=== PATIENT | female | born 1970 | race Caucasian/White ===

== ENCOUNTER 2020-02-16 14:45 | Inpatient (IN) | payer BC, OTHER ==
--- OUTSIDE RECORDS SUMMARY | 2020-02-16 14:52 | XMS REPORT | Continuity of Care Document ---
:1970 Author Organization [facility] t Address [address] [place] [address] Care Team Providers Name Role Phone Henry Primary Care Physician Unavailable DR MELONY Attending Clinician Unavailable Dickson BOUCHER S Attending Clinician Mary VITAL Attending Clinician Unavailable DR MELONY Admitting Clinician Unavailable Problems Condition Condition Condition Status Onset Resolution Last Treating Co mments Source Name Details Category Date Date Treatment Clinician Date LUMBAR Diagnosis Active 2019-03-30 Mem [facility] STRAIN 12-27 14:16:00 l LUMBAR 10:30: [place] STRAIN 00 Active 12/27/2018 [facility] Allergies, Adverse Reactions, Alerts This patient has no known allergies or adverse reactions. Social History Social Habit Start Date Stop Date Quantity Comments Source Sex Assigned At [facility] Tobacco use and 2016-09-28 2016-09-28 Never used [facility] exposure 00:00:00 00:00:00 Alcohol intake 2016-09-28 2016-09-28 Current drinker [place] [facility] 00:00:00 00:00:00 of alcohol (finding) Smoking Status Start Date Stop Date Source Never smoker [facility] Medications Ordered Filled Start Stop Current Ordering Indication Dosage Frequency Signature Comments Components Source Medication Medication Date Date Medication? Clinician (SIG) Name Name traZODone Yes 50mg QD Take 50 mg Ho francisco (DESYREL) 6-23 by mouth Method i 50 MG 12:37: nightly. st tablet 35 busPIRone 2017-0 Yes TK 1/2 TO Estrellita mercer (BUSPAR) 15 6-15 1 T PO BID Me thodi MG tablet 00:00: PRA st 00 escitalopra 2017- Yes TK 1 T PO H ouruslan m (LEXAPRO) 6-15 QAM Methodi 10 MG 00:00: st tablet 00 lisinopril 2016- Yes TK 1 T PO Ho francisco (PRINIVIL,Z 6-15 D Methodi ESTRIL) 10 00:00: st mg tablet 00 Procedures This patient has no known procedures. Plan of Care Planned Activity Planned Date Details Comments Source Future Scheduled 2019-11-07 INFLUENZA VACCINE [place] [facility] 00:00:00 [code = INFLUENZA VACCINE] Future Scheduled 2019-09-16 BREAST CANCER [facility] 00:00:00 SCREENING [code = BREAST CANCER SCREENING] Future Scheduled 2019-09-16 COLONOSCOPY SCREENING Ho [facility] Test 00:00:00 [code = COLONOSCOPY SCREENING] Future Scheduled 2019-09-16 SHINGLES VACCINES [place] [facility] 00:00:00 (#1) [code = SHINGLES VACCINES (#1)] Future Scheduled 1990 Screening for [facility] 00:00:00 malignant neoplasm of cervix (procedure) [code = 713966957] Encounters Start End Encounter Admission Attending Care Care Encounter Source Date/Time Date/Time Type Type Clinicians Facility Department ID 2019-12-23 2019-12-23 Outpatient C MATEO TY [facility] [id number] [facility] 07:54:00 11:25:00 Medica l [place] 2019-11-25 2019-11-25 [facility] [id number] 16:09:21 23:59:00 Encounter [facility] [id number] Surgical [id number] Specialti [id number] es [address] [place] 2019-11-25 2019-11-25 Office [facility] [id number] 16:07:18 16:22:18 Visit [facility] [id number] Surgical [id number] Specialti [id number] es [address] [place] 2019-01-29 2019-02-27 Outpatient AMANUEL, [id number] 11:36:00 23:59:00 HERO Hernandez [id number] 5.38 Results This patient has no known results.
--- OUTSIDE RECORDS SUMMARY | 2020-02-16 14:52 | XMS REPORT | Clinical Summary ---
:1970 Author Organization [facility] Address [address] [place] [address] Care Team Providers Name Role Phone Isabel Primary Care Provider Unavailable Allergies No Known Active Allergies Medications Medication Sig Dispensed Refills Start Date End Date Status busPIRone (BUSPAR) 15 MG TK 1/2 TO 1 T PO 2 09/21/19 17 Active tablet BID PRA escitalopram (LEXAPRO) TK 1 T PO QAM 4 09/20/2016 Active 10 MG tablet lisinopril TK 1 T PO D 5 09/20/2016 Active (PRINIVIL,ZESTRIL) 10 mg tablet traZODone (DESYREL) 50 Take 50 mg by 0 Active MG tablet mouth nightly. Active Problems No known active problems Medical History Medical History Date Comments Hypertension Kidney stone Family History Relation Name Status Comments Father Alive Mother Social History Tobacco Use Types Packs/Day Years Used Date Never Smoker Smokeless Tobacco: Never Used Alcohol Use Drinks/Week oz/Week Comments Yes Sex Assigned at Date Recorded Not on file Last Filed Vital Signs Not on file Plan of Treatment Health Maintenance Due Date Last Done Comments CERVICAL CANCER SCREENING 1990 BREAST CANCER SCREENING 09/16/2019 COLONOSCOPY SCREENING 09/16/2019 SHINGLES VACCINES (#1) 09/16/2019 INFLUENZA VACCINE 11/07/2019 Results Not on fileafter 02/15/2019 Advance Directives For more information, please contact: [phone] Type Date Recorded 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
--- OUTSIDE RECORDS SUMMARY | 2020-02-16 14:52 | XMS REPORT | Continuity of Care Document ---
:1970 Author Organization [facility] Care Team Providers Name Role Phone [facility] Unavailable Un available Problems Problem Status Onset Date Classification Date Comments Sour ce Reported LUMBAR Active 12/27/2018 [facility] STRAIN [facility] Medications No Data Provided for This Section Allergies, Adverse Reactions, Alerts No Known Medication Allergies Immunizations No Data Provided for This Section Results No Data Provided for This Section Pathology Reports No Data Provided for This Section Diagnostic Reports No Data Provided for This Section Consultation Notes No Data Provided for This Section Discharge Summaries No Data Provided for This Section History and Physicals No Data Provided for This Section Vital Signs No Data Provided for This Section Encounters Location Location Encounter Encounter Reason Attending ADM [place] Source Details Type Number For Provider Date Date Visit [facility] Alexandro OP Therapy [id number] HERO 01/29 02/28 [facility] Patients [facility] Procedures No Data Provided for This Section Assessment and Plan No Data Provided for This Section Plan of Care No Data Provided for This Section Social History Social History Date Source Social History TypeResponse 02/28/2019 [facility] Family History No Data Provided for This Section Advance Directives No Data Provided for This Section Functional Status No Data Provided for This Section
--- OUTSIDE RECORDS SUMMARY | 2020-02-16 14:53 | XMS REPORT | Summary of Care ---
:1970 Author Organization [facility] Address [address] [place] [address] Care Team Providers Name Role Phone Jackie Hall MD Primary Care Provider Reason for Referral Radiology Services (Routine) Status Reason Specialty Diagnoses / Referred By Referred To Procedures Contact Contact New Request Diagnostic Diagnoses Status post open reduction with internal fixation (ORIF) of fracture of ankle Logan Forman, Radiology Procedures XR ANKLE <3 VW LEFT PAC [address] [place] [address] Reason for Visit Reason Comments Follow-up ORIF LT Ankle DOS: 0 - 6 weeks 2 days Encounter Details Date Type Department Care Team Description 11/25/2019 Office Visit [facility] Orthopaedic Logan Forman, S tatus post open Surgery- [place] PAC reduction with [address], [address] internal fixation [address] ([place]) [place] [address] [place], [place] ankle (Primary Dx) [phone] Allergies Active Allergy Reactions Severity Noted Date Comments Codeine Itching 07/29/2013 documented as of this encounter (statuses as of 11/25/2019) Medications Medication Sig Dispensed Refills Start Date End Date Status traMADol 50 mg Take 1 tablet by 12 tablet 0 10/04/2019 Active tabletIndications: mouth every 8 Closed fracture of (eight) hours as proximal lateral needed for Pain malleolus of left (scale 7-10). fibula, initial encounter ibuprofen 600 mg Take 1 tablet by 30 tablet 0 10/04/2019 Active tabletIndications: mouth every 6 Closed fracture of (six) hours as proximal lateral needed for Pain malleolus of left (scale 4-6). fibula, initial encounter documented as of this encounter (statuses as of 11/25/2019) Active Problems Problem Noted Date Closed fracture of distal end of fibula, unspecified f racture morphology, 10/08/2019 initial encounter Overview: Added automatically from request for berna cristobal [id number] Hypercholesterolemia 02/19/2018 Macrocytosis 02/19/2018 Microscopic hematuria 09/14/2016 Anxiety 06/03/2016 Thrombocytosis 07/30/2013 Overview: PLT- 483 Tobacco use disorder 07/29/2013 Endometriosis 07/29/2013 Dysmenorrhea 07/29/2013 Depression 07/29/2013 documented as of this encounter (statuses as of 11/25/2019) Resolved Problems Problem Noted Date Resolved Date Encounter for routine gynecological examination 07/29/2013 05/29/2016 Overview: ICD10 Diagnosis 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 documented as of this encounter (statuses as of 11/25/2019) Immunizations Name Administration Dates Next Due Pneumococcal Polysaccharide, PPSV23 (PNEUMOVAX) 02/04/2018 Td 04/08/2009 documented as of this encounter Social History Tobacco Use Types Packs/Day Years Used Date Current Every Day Smoker Cigarettes 1 25 Smokeless Tobacco: Current User Alcohol Use Drinks/Week oz/Week Comments Yes 1-2 per month Sex Assigned at Date Recorded Not on file COVID-19 Exposure Response Date Recorded In the last month, have you been in contact with No / Unsure 10/26/2019 3:21 PM CDT someone who was confirmed or suspected to have Coronavirus / COVID-19? documented as of this encounter Last Filed Vital Signs Vital Sign Reading Time Taken Comments Blood Pressure 128/89 11/25/2019 4:14 PM CDT Pulse 87 11/25/2019 4:14 PM CDT Temperature - - Respiratory Rate - - Oxygen Saturation - - Inhaled Oxygen Concentration - - Weight 51.7 kg (114 lb) 11/25/2019 4:14 PM CDT Height 177.8 cm (5' 10") 11/25/2019 4:14 PM CDT Body Mass Index 16.36 11/25/2019 4:14 PM CDT documented in this encounter Progress Notes Logan Forman, PAC - 11/25/2019 4:15 PM CDT Cc: Chief Complaint Patient presents with Follow-up ORIF LT Ankle DOS: 10/12/2019 - 6 weeks 2 days Tee Smart is a 49 year old female. I'll up status post ORIF left ankle 10/11/2025 weeks postop Allergies Tee is allergic to codeine. Medications Outpatient Medications Prior to Visit Medication Sig Dispense Refill ibuprofen 600 mg tablet Take 1 tablet by mouth every 6 (six) hours as needed for Pain (scale 4-6). 30 tablet 0 traMADol 50 mg tablet Take 1 tablet by mouth every 8 (eight) hours as needed for Pain (scale 7-10). 12 tablet 0 No facility-administered medications prior to visit. Histories Past Medical History: Diagnosis Date Anemia During Anxiety 06/03/2016 Depression No current medications Depression 07/29/2013 Dysmenorrhea 07/29/2013 Endometriosis Macrocytosis 02/19/2018 Microscopic hematuria 09/14/2016 Personal history of kidney stones Tobacco use disorder 07/29/2013 Past Surgical History: Procedure Laterality Date ANKLE ORIF Left 10/12/2019 Surgeon: Ferny Wilcox MD; Location: [facility] Social History Socioeconomic History Marital status: Spouse name: Not on file Number of children: Not on file Years of education: Not on file Highest education level: Not on file Occupational History Not on file Social Needs Financial resource strain: Not on file Food insecurity Worry: Not on file Inability: Not on file Transportation needs Medical: Not on file Non-medical: Not on file Tobacco Use Smoking status: Current Every Day Smoker Packs/day: 1.00 Years: 25.00 Pack years: 25.00 Types: Cigarettes Smokeless tobacco: Current User Substance and Sexual Activity Alcohol use: Yes Comment: 1-2 per month Drug use: No Sexual activity: Yes Partners: Male control/protection: Abstinence Comment: Last intercourse 2 years ago Lifestyle Physical activity Days per week: Not on file Minutes per session: Not on file Stress: Not on file Relationships Social connections Talks on phone: Not on file Gets together: Not on file Attends sikh service: Not on file Active member of club or organization: Not on file Attends meetings of clubs or organizations: Not on file Relationship status: Not on file Intimate partner violence Fear of current or ex partner: Not on file Emotionally abused: Not on file Physically abused: Not on file Forced sexual activity: Not on file Other Topics Concern Not on file Social History Narrative Denies domestic violence or abuse Family History Problem Relation Age of Onset Hypertension Mother Depression Mother Psychiatry Mother Bipolar Disorder Thyroid Mother Hypertension Maternal Aunt Other - see comments Maternal Aunt Thyroid d/o Thyroid Maternal Aunt Hypertension Maternal Grandmother High cholesterol Maternal Grandmother Heart Maternal Grandmother Arthritis Daughter Juvenile rhematoid Psychiatry Sister bipolar disorder Asthma NoFHx defects NoFHx Genetic NoFHx Breast Cancer NoFHx Ovarian Cancer NoFHx Colon Cancer NoFHx Uterine Cancer NoFHx Cancer NoFHx Diabetes NoFHx Mental retardation NoFHx Neurological NoFHx Osteoporosis NoFHx Review of Systems Constitutional: Negative. HENT: Negative. Eyes: Negative. Respiratory: Negative. Breasts: Negative. Cardiovascular: Negative. Gastrointestinal: Negative. Genitourinary: Negative. Musculoskeletal: Positive for gait problem and joint swelling. Skin: Negative. Psychiatric/Behavioral: Negative. Endocrine: Endocrine negative Vital Signs Ht 70" (177.8 cm) | Wt 51.7 kg (114 lb) | BMI 16.36 kg/m Physical Exam Musculoskeletal: Comments: Physical Exam Constitutional: oriented to person, place, and time. appears well-developed and well-nourished. HENT: Head: Normocephalic and atraumatic. Right Ear: External ear normal. Left Ear: External ear normal. Eyes: Conjunctivae are normal. Neck: Normal range of motion. No strabismus Neck supple. Cardiovascular: Normal rate and regular rhythm. Pulmonary/Chest: Normal respiratory rate equal chest rise and fall in no apparent distress Abdominal: Abdomen nondistended nontender Neurological: alert and oriented to person, place, and time. No asymmetry Skin: Skin is warm and dry. Psychiatric: normal mood and affect. behavior is normal. Judgment and thought content normal. Nursing note and vitals reviewe Incision well-healed Assessment/Plan 1. Status post open reduction with internal fixation (ORIF) of fracture of ankle XR ANKLE <3 VW LEFT She can begin progressive weightbearing as tolerated in her cast boot when she can walk in her cast boot without difficulty she can progress her weightbearing in a regular shoe she will follow-up as needed only documented in this encounter Plan of Treatment Health Maintenance Due Date Last Done Comments DTaP,Tdap,and Td Vaccines (1 - Tdap) 1988 04/08/2009 PAP SMEAR 07/29/2016 07/29/2013 PNEUMOCOCCAL 0-64 YEARS COMBINED SERIES (2 of 3 - 02/04/2019 02/04/2018 PCV13) Breast Cancer Screening (MAMMOGRAM) 02/12/2019 02/12/2018 COLON CANCER SCREENING ANNUAL FIT/FOBT 09/16/2019 COLON CANCER SCREENING FIT DNA EVERY 3 YEARS 09/16/2019 COLON CANCER SCREENING SIGMOIDOSCOPY EVERY 5 YEARS 09/16/2019 COLONOSCOPY 09/16/2019 Colorectal Cancer Screening 09/16/2019 Zoster Recombinant Vaccine (SHINGRIX) (1 of 2) 09/16/2019 INFLUENZA VACCINE (#1) 2019 Depression Screening 10/11/2020 10/12/2019 documented as of this encounter Implants Implanted Type Area Psychologist Research Assistant Device Shelf Model / Identifier Expiration Date Ser ial / Lot Plate, Synthes Lcp One-Third Tubular W/Collar 6h/69mm #[id number] - Sn/A PLATE Left: Synthes 10/11/2029 [id number] / Implanted: Qty: 1 on 10/12/2019 by Ferny Cordero MD at [facility] Ankle N /A / N/A Screw, Synthes 3.5mm Cortex Slf-T 10mm #204.810 - Sn/A SCREW Lef t: Synthes 10/11/2029 204.810 / Implanted: Qty: 1 on 10/12/2019 by Ferny Cordero MD at [facility] Ankle N /A / N/A Screw, Synthes 3.5mm Cortex Slf-T 12mm #204.812 - Sn/A SCREW Lef t: Synthes 10/11/2029 204.812 / Implanted: Qty: 2 on 10/12/2019 by Ferny Cordero MD at [facility] Ankle N /A / N/A Screw, Synthes 3.5mm Cortex Slf-T 16mm #204.816 - Sn/A SCREW Lef t: Synthes 10/11/2029 204.816 / Implanted: Qty: 1 on 10/12/2019 by Ferny Cordero MD at [facility] Ankle N /A / N/A Screw, Synthes 4.0mm Cancellous Full Thrd/18mm #206.018 - Sn/A S CREW Left: Synthes 10/11/2029 206.018 / Implanted: Qty: 2 on 10/12/2019 by Ferny Cordero MD at [facility] Ankle N /A / N/A documented as of this encounter Results XR ANKLE <3 VW LEFT (11/25/2019 4:09 PM CDT) Specimen Narrative Performed At This result has an attachment that is no t available. Status post open reduction internal fixation some of the lower screws are PACS beginning to loosen but the fracture is now healing in cision in normal alignment with a normal ankle mortise Performing Organization Address City/State/Zipcode Phone Number PACS documented in this encounter Visit Diagnoses Diagnosis Status post open reduction with internal fixation (ORIF) of fracture of ankle - Primary documented in this encounter Insurance Payer Benefit Plan / Subscriber ID Effective Dates Phone Addre ss Type Group [facility] [id number] 2019-Present Medicaid COMM PLAN - MANAGED MEDICAID documented as of this encounter
--- OUTSIDE RECORDS SUMMARY | 2020-02-16 14:53 | XMS REPORT | Summary of Care ---
:1970 Author Organization [facility] Address [address] [place] [address] Care Team Providers Name Role Phone Jackie Hall MD Primary Care Provider Reason for Visit Radiology Services (Routine) Status Reason Specialty Diagnoses / Referred By Referred To Procedures Contact Contact New Request Diagnostic Diagnoses Status post open reduction with internal fixation (ORIF) of fracture of ankle Logan Forman, Radiology Procedures XR ANKLE <3 VW LEFT PAC [address] [place] [address] Encounter Details Date Type Department Care Team Description 11/25/2019 Hospital Encounter [facility] Logan Forman , [facility] Orthopedics - PAC Radiology [address] [facility] [place] [address] [place] [phone] Allergies Active Allergy Reactions Severity Noted Date Comments Codeine Itching 07/29/2013 documented as of this encounter (statuses as of 11/26/2019) Medications Medication Sig Dispensed Refills Start Date [...] as of this encounter (statuses as of 11/26/2019) Active Problems Problem Noted Date Closed fracture of distal end of fibula, unspecified f racture morphology, 10/08/2019 initial encounter Overview: Added automatically from request for berna cristobal [id number] Hypercholesterolemia 02/19/2018 Macrocytosis 02/19/2018 Microscopic hematuria 09/14/2016 Anxiety 06/03/2016 Thrombocytosis 07/30/2013 Overview: PLT- 483 Tobacco use disorder 07/29/2013 Endometriosis 07/29/2013 Dysmenorrhea 07/29/2013 Depression 07/29/2013 documented as of this encounter (statuses as of 11/26/2019) Resolved Problems Problem Noted Date Resolved Date Encounter for routine gynecological examination 07/29/2013 05/29/2016 Overview: ICD10 Diagnosis Term Cna Ltc Utility documented as of this encounter (statuses as of 11/26/2019) Immunizations Name Administration Dates Next Due Pneumococcal [...] of this encounter Last Filed Vital Signs Not on filedocumented in this encounter Plan of Treatment Health [...] of this encounter Implants Implanted Type Area Perianesthesia Manager Device Shelf Model / Identifier Expiration Date Ser ial / Lot Plate, Synthes Lcp One-Third Tubular W/Collar 6h/69mm #[id number] 61 - Sn/A PLATE Left: Synthes 10/11/2029 241.361 / Implanted: Qty: 1 on 10/12/2019 by Ferny Cordero MD at [facility] Ankle N /A / N/A Screw, Synthes 3.5mm Cortex Slf-T 10mm #204.810 - Sn/A SCREW Lef t: Synthes 10/11/2029 204.810 / Implanted: Qty: 1 on 10/12/2019 by Ferny Cordero MD at [facility] Ankle N /A / N/A Screw, Synthes 3.5mm Cortex Slf-T 12mm #204.812 - Sn/A SCREW Lef t: Synthes 10/11/2029 204.812 / Implanted: Qty: 2 on 10/12/2019 by Ferny Cordero MD at [facility] Ankle N /A / N/A Screw, Synthes 3.5mm Cortex Slf-T 16mm #204.816 - Sn/A SCREW Lef t: Synthes 10/11/2029 204.816 / Implanted: Qty: 1 on 10/12/2019 by Ferny Cordero MD at [facility] Ankle N /A / N/A Screw, Synthes 4.0mm Cancellous Full Thrd/18mm #206.018 - Sn/A S CREW Left: [place] 10/11/2029 206.018 / Implanted: Qty: 2 on 10/12/2019 by Ferny Cordero MD at [facility] Ankle N /A / N/A documented as of this encounter Procedures Procedure Name Priority Date/Time Associated Diagnosis Comme nts XR ANKLE <3 VW LEFT Routine 11/25/2019 4:09 PM Status post op en Results for this CDT reduction with procedure are in internal fixation the result s (ORIF) of fracture section. of ankle documented in this encounter Results XR ANKLE <3 VW LEFT (11/25/2019 4:09 PM CDT) Specimen Narrative Performed At This result has an attachment that is no t available. Status post open reduction internal fixation some of the lower screws are PACS beginning to loosen but the fracture is now healing in cision in normal alignment with a normal ankle mortise Performing Organization Address City/State[facility] Phone Number PACS documented in this encounter Visit Diagnoses Diagnosis Status post open reduction with internal fixation (ORIF) of fracture of ankle documented in this encounter Insurance Payer Benefit Plan / Subscriber ID Effective Dates Phone Addre ss Type Group [facility] [id number] 2019-Present Medicaid COMM PLAN - MANAGED MEDICAID documented as of this encounter
--- OUTSIDE RECORDS SUMMARY | 2020-02-16 14:53 | XMS REPORT | Summary of Care ---
:1970 Author Organization [facility] Address [address] [place] [address] Care Team Providers Name Role Phone Jackie Hall MD Primary Care Provider Reason for Referral Radiology Services (Routine) Status Reason Specialty Diagnoses / Referred By Referred To Procedures Contact Contact New Request Diagnostic Diagnoses Status post open reduction with internal fixation (ORIF) of fracture of ankle Logan Forman, Radiology Procedures XR ANKLE <3 VW LEFT PAC [address] [place] [address] Reason for Visit Reason Comments Follow-up ORIF LT Ankle DOS: 0 - 6 weeks 2 days Encounter Details Date Type Department Care Team Description 11/25/2019 Office Visit [facility] Logan Forman, S tatus post open Surgery- Spurgeon PAC reduction with [address], [address] internal fixation [address] (ORIF) [place] [address] [place], [place] ankle (Primary Dx) [phone] [id number] Allergies Active Allergy Reactions Severity Noted [...] Added automatically from request for berna cristobal [id number] Hypercholesterolemia 02/19/2018 Macrocytosis 02/19/2018 Microscopic hematuria 09/14/2016 Anxiety 06/03/2016 Thrombocytosis 07/30/2013 Overview: PLT- 483 Tobacco use disorder 07/29/2013 Endometriosis 07/29/2013 Dysmenorrhea 07/29/2013 Depression 07/29/2013 documented as of this encounter (statuses as of 11/25/2019) Resolved Problems Problem Noted Date Resolved Date Encounter for routine gynecological examination 07/29/2013 05/29/2016 Overview: ICD10 Diagnosis Term Records Supervisor Utility documented as of this encounter (statuses [...] Left 10/12/2019 Surgeon: Ferny Wilcox MD; Location: [facility] [place] Social History Socioeconomic History Marital status: Spouse [...] file Gets together: Not on file Attends worship service: Not on file Active member of [...] of this encounter Implants Implanted Type Area Personal Banking Officer Device Shelf Model / Identifier Expiration Date Ser ial / Lot Plate, Synthes Lcp One-Third Tubular W/Collar 6h/69mm #[id number] - Sn/A PLATE Left: Synthes 10/11/2029 241.361 / Implanted: Qty: 1 on 10/12/2019 by Ferny Cordero MD at [facility] Ankle N /A / N/A Screw, Synthes 3.5mm Cortex Slf-T 10mm #204.810 - Sn/A SCREW Lef t: Synthes 10/11/2029 204.810 / Implanted: Qty: 1 on 10/12/2019 by Ferny Cordero MD at [facility] Ankle N /A / N/A Screw, Synthes 3.5mm Cortex Slf-T 12mm #204.812 - Sn/A SCREW Lef t: Synthes 10/11/2029 204.812 / Implanted: Qty: 2 on 10/12/2019 by Ferny Cordero MD at [facility] Ankle N /A / N/A Screw, Synthes 3.5mm Cortex Slf-T 16mm #204.816 - Sn/A SCREW Lef t: Synthes 10/11/2029 204.816 / Implanted: Qty: 1 on 10/12/2019 by Ferny Cordero MD at [facility] Ankle N /A / N/A Screw, Synthes 4.0mm Cancellous Full Thrd/18mm #206.018 - Sn/A S CREW Left: Synthes 10/11/2029 206.018 / Implanted: Qty: 2 on 10/12/2019 by Ferny Cordero MD at [facility] Ankle N /A / N/A documented as [...] Effective Dates Phone Addre ss Type Group [facility] [id number] 2019-Present Medicaid COMM PLAN - MANAGED MEDICAID documented as of this encounter
--- NOTE | 2020-02-16 17:12 | ER ---
Nurse's Notes [facility] Name: Tee Smart Age: 49 yrs Sex: Female : 1970 Arrival Date: 02/16/2020 Time: 14:49 Bed 14 Private MD: Diagnosis: Cutaneous abscess of buttock Presentation: 02/15 15:08 Chief complaint: Patient states: Abscess on R buttocks x 6 days. Denies fever. Reports ca1 chills and nausea. Takes Tramadol regularly for back pains. Coronavirus screen: Client denies travel out of the [place] in the last 14 days. chills, nausea, Client presents with at least one sign or symptom that may indicate coronavirus-19. Standard/surgical mask placed on the client. Provider contacted for isolation considerations. The client reports previous COVID testing was negative. Date of collection: September 2019. Ebola Screen: Patient negative for fever greater than or equal to 101.5 degrees Fahrenheit, and additional compatible Ebola Virus Disease symptoms Patient denies exposure to infectious person. Patient denies travel to an Ebola-affected area in the 21 days before illness onset. No symptoms or risks identified at this time. Initial Sepsis Screen: Does the patient meet any 2 criteria? No. Patient's initial sepsis screen is negative. Does the patient have a suspected source of infection? No. Patient's initial sepsis screen is negative. Risk Assessment: Do you want to hurt yourself or someone else? Patient reports no desire to harm self or others. Onset of symptoms was February 16, 2020. 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 - Social history:: Smoking status: Reported history of juuling and/or vaping. Patient/guardian denies using tobacco, the patient reports quitting approximately 2 years ago. Screenin:08 Abuse screen: Denies threats or abuse. Nutritional screening: No deficits noted. tw2 Tuberculosis screening: No symptoms or risk factors identified. Fall Risk None identified. Assessment: 17:00 General: Appears in no apparent distress. uncomfortable, slender, well groomed, tw2 Behavior is calm, cooperative, appropriate for age. Pain: Complains of pain in buttocks and right gluteus tony. Neuro: Level of Consciousness is awake, alert, obeys commands, Oriented to person, place, time, situation. Cardiovascular: Heart tones S1 S2 Capillary refill < 3 seconds Patient's skin is warm and dry. Respiratory: Airway is patent Breath sounds are clear bilaterally. GI: Abdomen is flat, Bowel sounds present X 4 quads. : No signs and/or symptoms were reported regarding the genitourinary system. EENT: No signs and/or symptoms were reported regarding the EENT system. Derm: Skin is intact, is healthy with good turgor, Skin is dry. Derm: Reports abscess to right buttocks area. Musculoskeletal: Circulation, motion, and sensation intact. Range of motion: intact in all extremities. 17:42 Reassessment: Patient states symptoms have not improved. provider notified pt tw2 requesting to take personal Tramadol 50 mg tablet she has with her in personal belongings. 18:43 Reassessment: Patient appears in no apparent distress at this time. No changes from tw2 previously documented assessment. Patient and/or family updated on plan of care and expected duration. Pain level reassessed. Patient is alert, oriented x 3, equal unlabored respirations, skin warm/dry/pink. Vital Signs: 15:08 BP 155 / 94; Pulse 102; Resp 18 S; Temp 99.3(TE); Pulse Ox 100% on R/A; Weight 47.63 kg ca1 (R); Height 5 ft. 10 in. (177.80 cm) (R); 17:41 BP 152 / 89; Pulse 87; Resp 19; Pulse Ox 100% on R/A; Pain 10/10; tw2 18:26 BP 129 / 65; Pulse 80; Resp 17; Temp 99.6(O); Pulse Ox 100% on R/A; tw2 15:08 Body Mass Index 15.07 (47.63 kg, 177.80 cm) ca1 17:41 provider notified of pain and that pt states "i normally take tramadol 50 mg for my tw2 back and i last took one at 8 am this morning" ED Course: 14:49 Patient arrived in ED. ds1 15:11 Triage completed. ca1 15:12 Arm band placed on right wrist. ca1 16:54 Nirali Allen FNP-C is PHCP. snw 16:54 Camilo Garcia MD is Attending Physician. snw 17:00 Placed in gown. Bed in low position. Pulse ox on. NIBP on. Warm blanket given. tw2 17:05 Rajani Solares RN is Primary Nurse. tw2 17:11 Rell Matamoros MD is Hospitalizing Provider. snw 17:30 Initial lab(s) drawn, by me, sent to lab. First set of blood cultures drawn by me. tw2 Inserted saline lock: 20 gauge in left antecubital area, using aseptic technique. Blood collected. 17:45 Second set of blood cultures drawn by me. tw2 18:23 No provider procedures requiring assistance completed. tw2 18:23 Patient admitted, IV remains in place. tw2 Administered Medications: 17:30 Drug: NS 0.9% 1000 ml Route: IV; Rate: 1 bolus; Site: left antecubital; tw2 18:42 Follow up: IV Status: Infusion continued upon admission tw2 17:30 Drug: Valium 5 mg Route: IVP; Site: left antecubital; tw2 18:42 Follow up: Response: No adverse reaction tw2 17:45 Drug: Ancef 1 grams Route: IVPB; Site: left antecubital; tw2 17:50 Follow up: Response: No adverse reaction; IV Status: Completed infusion tw2 17:50 Drug: Clindamycin 600 mg Route: IVPB; Infused Over: 30 mins; Site: left antecubital; tw2 18:20 Follow up: Response: No adverse reaction; IV Status: Completed infusion tw2 17:50 Drug: fentaNYL (PF) 25 mcg Route: IVP; Site: left antecubital; tw2 18:40 Follow up: Response: No adverse reaction; Pain is decreased; RASS: Alert and Calm (0) tw2 Outcome: 17:12 Decision to Hospitalize by Provider. snw 18:29 Admitted to Med/surg accompanied by tech, via stretcher, room 205, with chart, Report tw2 called to ASHLEIGH Bill 18:29 Condition: stable 18:29 Instructed on 18:46 Patient left the ED. tw2 Signatures: Nirali Allen, UPFITTER-C UPFITTER-Csnw Eloise Mahan ds1 Rajani Solares RN RN tw2 Alethea Monaco RN RN ca1 Corrections: (The following items were deleted from the chart) 17:43 17:42 Reassessment: Patient states symptoms have not improved. tw2 tw2
--- NOTE | 2020-02-16 17:13 | EDPHYS ---
Physician Documentation [facility] Name: Tee Smart Age: 49 yrs Sex: Female : 1970 Arrival Date: 02/16/2020 Time: 14:49 Bed 14 Private MD: AMEE Physician Camilo Garcia HPI: 02/15 17:24 This 49 yrs old Female presents to ER via Ambulatory with complaints of snw Abscess. 17:24 The patient presents with an abscess of the right gluteus tony. Description: The snw affected area is large, well demarcated, erythematous, fluctuant, hot. Onset: The symptoms/episode began/occurred 4 day(s) ago, and became worse last night, and became persistent. Associated signs and symptoms: Pertinent positives: erythema, pain. Severity of symptoms: At their worst the symptoms were moderate. The patient has not experienced similar symptoms in the past. pt with recent fall, fx of ankle and tailbone. Recent weight loss. . 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 - Social history:: Smoking status: Reported history of juuling and/or vaping. Patient/guardian denies using tobacco, the patient reports quitting approximately 2 years ago. ROS: 17:23 Constitutional: Negative for fever, chills, and weight loss, Eyes: Negative for injury, snw pain, redness, and discharge, ENT: Negative for injury, pain, and discharge, Neck: Negative for injury, pain, and swelling, Cardiovascular: Negative for chest pain, palpitations, and edema, Respiratory: Negative for shortness of breath, cough, wheezing, and pleuritic chest pain, Abdomen/GI: Negative for abdominal pain, nausea, vomiting, diarrhea, and constipation, Back: Negative for injury and pain, : Negative for injury, bleeding, discharge, and swelling, MS/Extremity: Negative for injury and deformity, Neuro: Negative for headache, weakness, numbness, tingling, and seizure, Psych: Negative for depression, anxiety, suicide ideation, homicidal ideation, and hallucinations. 17:23 Skin: Positive for abscess, of the right gluteus tony. Exam: 17:09 Constitutional: This is a well developed, well nourished patient who is awake, alert, snw and in no acute distress. Head/Face: Normocephalic, atraumatic. Eyes: Pupils equal round and reactive to light, extra-ocular motions intact. Lids and lashes normal. Conjunctiva and sclera are non-icteric and not injected. Cornea within normal limits. Periorbital areas with no swelling, redness, or edema. ENT: Nares patent. No nasal discharge, no septal abnormalities noted. Tympanic membranes are normal and external auditory canals are clear. Oropharynx with no redness, swelling, or masses, exudates, or evidence of obstruction, uvula midline. Mucous membranes moist. Neck: Trachea midline, no thyromegaly or masses palpated, and no cervical lymphadenopathy. Supple, full range of motion without nuchal rigidity, or vertebral point tenderness. No Meningismus. Chest/axilla: Normal chest wall appearance and motion. Nontender with no deformity. No lesions are appreciated. Cardiovascular: Regular rate and rhythm with a normal S1 and S2. No gallops, murmurs, or rubs. Normal PMI, no JVD. No pulse deficits. Respiratory: Lungs have equal breath sounds bilaterally, clear to auscultation and percussion. No rales, rhonchi or wheezes noted. No increased work of breathing, no retractions or nasal flaring. Abdomen/GI: Soft, non-tender, with normal bowel sounds. No distension or tympany. No guarding or rebound. No evidence of tenderness throughout. Back: No spinal tenderness. No costovertebral tenderness. Full range of motion. MS/ Extremity: Pulses equal, no cyanosis. Neurovascular intact. Full, normal range of motion. Neuro: Awake and alert, GCS 15, oriented to person, place, time, and situation. Cranial nerves II-XII grossly intact. Motor strength 5/5 in all extremities. Sensory grossly intact. Cerebellar exam normal. Normal gait. Psych: Awake, alert, with orientation to person, place and time. Behavior, mood, and affect are within normal limits. 17:09 Skin: Appearance: Color: normal in color, abscess, that is large, approximately 8 cm(s), of the right gluteus tony, with fluctuance, with induration. 17:09 Special observations: sad, weight loss. Vital Signs: 15:08 BP 155 / 94; Pulse 102; Resp 18 S; Temp 99.3(TE); Pulse Ox 100% on R/A; Weight 47.63 kg ca1 (R); Height 5 ft. 10 in. (177.80 cm) (R); 17:41 BP 152 / 89; Pulse 87; Resp 19; Pulse Ox 100% on R/A; Pain 10/10; tw2 18:26 BP 129 / 65; Pulse 80; Resp 17; Temp 99.6(O); Pulse Ox 100% on R/A; tw2 15:08 Body Mass Index 15.07 (47.63 kg, 177.80 cm) ca1 17:41 provider notified of pain and that pt states "i normally take tramadol 50 mg for my tw2 back and i last took one at 8 am this morning" MDM: 16:56 Patient medically screened. snw 17:12 Data reviewed: vital signs, nurses notes. Data interpreted: Pulse oximetry: on room air snw is 100 %. Interpretation: normal. Counseling: I had a detailed discussion with the patient and/or guardian regarding: the historical points, exam findings, and any diagnostic results supporting the discharge/admit diagnosis, lab results, the need for further work-up and treatment in the hospital. Physician consultation: Rell Matamoros MD was called at 17:00, was contacted at 17:00, regarding admission, to the medical/surgical unit. patient's condition, NPO post MN. 02/15 17:08 Order name: CBC with Diff; Complete Time: 17:48 snw 02/15 17:08 Order name: Chem 7; Complete Time: 18:22 snw 02/15 17:08 Order name: Blood Culture Adult (2) snw 02/15 17:09 Order name: Consult Surgery-Rell Matamoros MD (GENERAL SURGERY) snw 02/15 17:18 Order name: IV Start; Complete Time: 17:38 tw2 Administered Medications: 17:30 Drug: NS 0.9% 1000 ml Route: IV; Rate: 1 bolus; Site: left antecubital; tw2 18:42 Follow up: IV Status: Infusion continued upon admission tw2 17:30 Drug: Valium 5 mg Route: IVP; Site: left antecubital; tw2 18:42 Follow up: Response: No adverse reaction tw2 17:45 Drug: Ancef 1 grams Route: IVPB; Site: left antecubital; tw2 17:50 Follow up: Response: No adverse reaction; IV Status: Completed infusion tw2 17:50 Drug: Clindamycin 600 mg Route: IVPB; Infused Over: 30 mins; Site: left antecubital; tw2 18:20 Follow up: Response: No adverse reaction; IV Status: Completed infusion tw2 17:50 Drug: fentaNYL (PF) 25 mcg Route: IVP; Site: left antecubital; tw2 18:40 Follow up: Response: No adverse reaction; Pain is decreased; RASS: Alert and Calm (0) tw2 Disposition: 02/16 06:56 Co-signature as Attending Physician, Camilo Garcia MD I agree with the assessment and penny plan of care. Disposition: 02/16/20 17:12 Hospitalization ordered by Rell Matamoros for Inpatient Admission. Preliminary diagnosis is Cutaneous abscess of buttock. - Bed requested for Telemetry/MedSurg (Inpatient). - Status is Inpatient Admission. tw2 - Condition is Stable. - Problem is new. - Symptoms are unchanged. Signatures: Dispatcher [employer] Namita Carbone RN RN dw Anderson, Corey, MD MD cha Waters, Shelly, SOCIAL SCIENCE TEACHER-C SOCIAL SCIENCE TEACHER-Csnw Rajani Solares RN RN tw2 Alethea Monaco RN RN ca1 Corrections: (The following items were deleted from the chart) 02/15 17:44 17:12 Hospitalization Ordered by Rell Matamoros MD for Inpatient Admission. Preliminary dw diagnosis is Cutaneous abscess of buttock. Bed requested for Telemetry/MedSurg (Inpatient). Status is Inpatient Admission. Condition is Stable. Problem is new. Symptoms are unchanged. snw 18:46 17:44 02/16/2020 17:12 Hospitalization Ordered by Rell Matamoros MD for Inpatient tw2 Admission. Preliminary diagnosis is Cutaneous abscess of buttock. Bed requested for Telemetry/MedSurg (Inpatient). Status is Inpatient Admission. Condition is Stable. Problem is new. Symptoms are unchanged. dw
[2020-02-16] MEDS ORDERED: DIAZEPAM 10 MG/2 ML INJ SYRINGE ONE (17:29)
[2020-02-16] MEDS ORDERED: CLINDAMYCIN 600MG/D5W 600 MG/50 ML BAG IV ONE (17:30)
[2020-02-16] MEDS ORDERED: NA CHLORIDE 0.9% 1,000 ML ONE (17:30)
[2020-02-16] MEDS ORDERED: CEFAZOLIN/SWI 1gm 1 GM/10 ML SYR ONE (17:30)
[2020-02-16 17:43] LABS: Absolute Lymphocytes (CBC) 3.5 K/uL (0.7-4.9); Basophils % 0.4 % (0-1.3); Hematocrit 40.9 % (36.0-45.0); Lymphocytes % 19.6 % (15.3-44.8); MPV 7.8 fL (7.6-11.3); RBC Red Blood Cell Count 4.37 M/uL (3.86-4.86)
[2020-02-16] MEDS ORDERED: FENTANYL CITR 100 MCG/2 ML ONE (18:01)
[2020-02-16 18:15] LABS: Potassium 3.3 mmol/L (3.5-5.1)
[2020-02-16] MEDS ORDERED: ACETAMINOPHEN 500 MG TAB PO PRN (19:54)
[2020-02-16] MEDS: D5 0.45 NS 1,000 ML IV SCH (21:19)
[2020-02-16 21:29] VITALS: BMI 15.0
[2020-02-17] MEDS ORDERED: CEFAZOLIN SODIUM 1 GM/VIAL ONE (00:41)
[2020-02-17] MEDS ORDERED: CLINDAMYCIN 600MG/D5W 600 MG/50 ML BAG IV ONE (00:41)
[2020-02-17] MEDS ORDERED: CEFAZOLIN/NS 1gm 1 GM/50 ML BAG IVPB SCH (01:00)
[2020-02-17] MEDS ORDERED: CEFAZOLIN SODIUM 1 GM/VIAL IVP ONE (01:00)
[2020-02-17] MEDS: CLINDAMYCIN INJ 600 MG in NA CHLORIDE 0.9% 50 ML IV SCH ×3 (01:00→16:07)
[2020-02-17] MEDS ORDERED: WATER FOR INJ,STERILE 10 ML IV ONE (01:00)
[2020-02-17] MEDS: D5 0.45 NS 1,000 ML IV SCH ×3 (03:31→19:54)
[2020-02-17] MEDS: FENTANYL CITR 100 MCG/2 ML IV PRN ×2 (05:57→22:23)
[2020-02-17] MEDS: CEFAZOLIN/SWI 1gm 1 GM/10 ML SYR IVP SCH ×2 (09:00→16:07)
[2020-02-17] MEDS ORDERED: MORPHINE 4 MG/ML SYR IV ONE (11:01)
[2020-02-17] MEDS ORDERED: PROMETHAZINE INJ 25 MG/ML AMP IV PRN (11:05)
--- NOTE | 2020-02-17 13:06 | P.HP ---
Date of Service: 02/17/20 PC: This 49-year-old female presents emergency room with severe pain in her right buttock for diagnosis and treatment. HPC: Patient has been experiencing severe pain since last . Started feel a bulge on the buttock on the right side. Feels like an abscess trying to point. It so far has not pops. She could no longer tolerate it at home. PMH: Chronic back issues PSHx: Negative SOC: No known allergies SYS REVIEW: No cough, wheeze, shortness of breath. No chest pain or palpitations. Denies any urinary complaints. Tries to keep her health good takes vitamins and other [id number]. O/E awake alert uncomfortable HEENT: Not jaundiced Chest: Chest movement equal bilaterally ABD: Soft LOCO: Has a area on the right buttock that is trying to point DATA: Elevated white cell count IMPRESSION: Abscess of the right PLAN: I will to the operating room for incision, drainage, sharp debridement of this abscess on her right buttock. The risks of this procedure have been discussed. The possibility of bleeding, infection, need for further surgeries and recurrence were explained. She understands and wants us to proceed.
[2020-02-17] MEDS ORDERED: MIDAZOLAM HCL 2 MG/2 ML INJ ONE (13:13)
[2020-02-17] MEDS ORDERED: propofoL 200 MG/20 ML VIAL IV ONE (13:13)
[2020-02-17] MEDS ORDERED: FENTANYL CITR 100 MCG/2 ML ONE (13:13)
[2020-02-17] MEDS ORDERED: LIDOCAINE 1% MPF 5 ML VIAL ONE (13:13)
[2020-02-17] MEDS ORDERED: Ringers Lactate 1,000 ML IV ONE (13:16)
[2020-02-17] MEDS ORDERED: ONDANSETRON 4 MG/2 ML VIAL ONE (13:36)
[2020-02-17] MEDS ORDERED: KETOROLAC 30 MG/ML INJ ONE (13:36)
[2020-02-17] MEDS ORDERED: dexAMETHasone 4 MG/ML VIAL ONE (13:36)
--- NOTE | 2020-02-17 13:58 | P.OP ---
Preoperative diagnosis: Abscess of the right buttock Postoperative diagnosis: The same Primary procedure: Incision, drainage, sharp debridement of abscess of the right buttock Anesthesia: General Estimated blood loss: Less than 10 cc Specimen: None were sent Operative Technique: The patient brought the operating room and in the left lateral position after the induction of adequate anesthesia. The area of the right buttock was then prepped with a Betadine solution draped in usual aseptic manner. Attention was turned towards right buttock. There is this large abscess that measures approximately 8 cm by 6 cm on the right buttock. Under the lytes of the OR we could see there was actually a small punctum in the middle of this. This area was infiltrated with 0.25% Marcaine. A skin incision was made. This was brought down through full-thickness skin. We encounter a large abscess with yellowish purulent material. We drained approximately 50 cc from this abscess. Using an [employer] we were able to inspect the inside of the abscess cavity. Necrotic debris was sharply debrided using 11 surgical blade. A curette was also used to debride off some of the more adherent necrotic tissue. Having gone back to good clean tissue a finger was placed into the wound and the remaining loculations were broken down. At the most inferior aspect of this abscess cavity, a counter incision was made. Through nature brought a quarter-inch Ifeoma drain. This was then tied on itself to keep the area open and draining during the postoperative period. At the end of the procedure the patient was in a stable condition when sent to the recovery room. Needle sponge instrument count were correct. The drain was in position. No specimens were sent. Complications: None Drain(s): Other (1 quarter-inch Ifeoma)
[2020-02-17 14:25] VITALS: O2SAT 99
[2020-02-18] MEDS: D5 0.45 NS 1,000 ML IV SCH (00:05)
[2020-02-18] MEDS: CEFAZOLIN/SWI 1gm 1 GM/10 ML SYR IVP SCH ×2 (00:05→09:00)
[2020-02-18] MEDS: CLINDAMYCIN INJ 600 MG in NA CHLORIDE 0.9% 50 ML IV SCH ×2 (00:05→09:00)
[2020-02-18 08:39] VITALS: BP 122/63; TEMP 97.4
--- NOTE | 2020-02-18 10:55 | P.DS ---
Admission Date: 02/16/20 Discharge Date: 02/18/20 Disposition: ROUTINE DISCHARGE Discharge Condition: GOOD Reason for Admission: Abscess of the left buttock Procedures: Incision, drainage, sharp debridement of abscess of the left buttock Brief History of Present Illness: This patient presents ED emergency room with severe pain in her left buttock. Hospital Course: The patient was been in the hospital for IV fluids, antibiotics, and pain relief. The following morning she is brought to the operating room where she underwent incision, drainage, sharp debridement of this abscess of the left buttock. She is admitted postoperatively for antibiotics and pain control. Today she is up ambulating, her wounds much improved, she feels better and is anxious to go home. Vital Signs/Physical Exam: Temp Pulse Resp BP Pulse Ox 97.4 F 56 15 122/63 100 02/18/20 08:00 02/18/20 08:00 02/18/20 08:00 02/18/20 08:00 02/18/20 08:00 Musculoskeletal: Other (Wound dressing is intact, drain is in good position.) Laboratory Data at Discharge: WBC 18.0 K/uL (4.3-10.9) H 02/16/20 17:30 Hgb 14.1 g/dL (12.0-15.0) 02/16/20 17:30 Hct 40.9 % (36.0-45.0) 02/16/20 17:30 Plt Count 350 K/uL (152-406) 02/16/20 17:30 Sodium 137 mmol/L (136-145) 02/16/20 17:30 Potassium 3.3 mmol/L (3.5-5.1) L 02/16/20 17:30 BUN 4 mg/dL (7-18) L 02/16/20 17:30 Creatinine 0.86 mg/dL (0.55-1.3) 02/16/20 17:30 Glucose 102 mg/dL (74-106) 02/16/20 17:30 Home Medications: Diazepam [Valium] 5 mg PO PRN PRN 02/16/20 Meloxicam 7.5 mg PO DAILY 02/16/20 Tizanidine [Zanaflex*] 4 mg PO BID 02/16/20 Patient Discharge Instructions: You may shower, pat the area dry, change dressing as needed. Remove small drain as described on Saturday. See me on Saturday. Any questions or problems, go to the emergency room or contact me. Patient has her tramadol at home. Does not require any other further pain medicine. Followup: Rell Matamoros MD [ACTIVE - CAN ADMIT] -
[2020-02-18] MEDS ORDERED: ENSURE ENLIVE 237 ML CAN PO SCH (21:00)
== END 2020-02-18 12:09 | disposition home or self-care (01) | DRG 572 ==
LOC: ER 14:45 → ERHOLD 17:28 → 2ND 18:27
PROVIDERS: ADMIT Surgery; ATTEND Surgery
PROC: 0JB90ZZ Excision of Buttock Subcutaneous Tissue and Fascia, Open Approach (ICD-10-PCS; principal; 2020-02-17 12:30)
DX: L02.31 Cutaneous abscess of buttock (principal); Z87.891 Personal history of nicotine dependence
CPT/HCPCS: 36415; 80048; 85025; 87040; 96361; 96365; 96375; 99285; J0690; J1100; J2250; J2405; J2550; J2704; J3010; J3360; J7030; J7120; J7799; U0002